=== PATIENT | female | born 1990 | race Caucasian/White ===

== ENCOUNTER 2016-10-24 17:12 | Emergency (ER) | payer OTHER ==
[2016-10-24 17:20] VITALS: BP 127/71; PULSE 88; RESP 16; TEMP 98.1; O2SAT 99
--- NOTE | 2016-10-24 18:09 | ED PDOC ---
HPI: General Adult Time Seen by Provider: 10/24/16 17:35 Chief Complaint (Nursing): ENT Problem Chief Complaint (Provider): ear lobe pain History Per: Patient History/Exam Limitations: no limitations Additional Complaint(s): 26yo F in Ed for eval of left ear lobe earring -states it has been lodged in ear lobe x 2 weeks with pain in area no swelling to ear lobe that can be seen, no drainage no fever no chills no redness. Past Medical History Reviewed: Historical Data, Nursing Documentation, Vital Signs Vital Signs: Last Vital Signs Temp 98.1 F 10/24/16 17:16 Pulse 88 10/24/16 17:16 Resp 16 10/24/16 17:16 BP 127/71 10/24/16 17:16 Pulse Ox 99 10/24/16 17:16 - Medical History PMH: No Chronic Diseases - Family History Family History: States: No Known Family Hx - Home Medications Home Medications: Ambulatory Orders Medication Instructions Recorded Cephalexin [cephalexin] 500 mg PO BID #20 cap 10/24/16 - Allergies Allergies/Adverse Reactions: Allergies Allergy/AdvReac Type Severity Reaction Status Date / Time No Known Allergies Allergy Verified 10/24/16 17:16 Review of Systems ROS Statement: Except As Marked, All Systems Reviewed And Found Negative Musculoskeletal: Positive for: Other (ear: ear lobe left with earring stub lodged in ear lobe with swelling no drainage no ertyehma tenderness noted) Physical Exam - Reviewed Nursing Documentation Reviewed: Yes Vital Signs Reviewed: Yes - Physical Exam Appears: Positive for: Well, Non-toxic, No Acute Distress Head Exam: Positive for: ATRAUMATIC, NORMAL INSPECTION, NORMOCEPHALIC Skin: Positive for: Normal Color, Warm, DRY ENT: Positive for: Other Neurologic/Psych: Positive for: Alert, Oriented - ECG O2 Sat by Pulse Oximetry: 99 Medical Decision Making Medical Decision Making: procedure: earring removed. 1/2 cc of lidocaine used, with forceps stub removed. and earring removed. stoma with inflammation no drainage. advised to apply warm compress to area will be d./c with keflex Disposition - Clinical Impression Clinical Impression: Acute foreign body of earlobe - Patient ED Disposition Is Patient to be Admitted: No Counseled Patient/Family Regarding: Diagnosis, Need For Followup, Rx Given - Disposition Disposition: Routine/Home Disposition Time: 18:13 Condition: STABLE Prescriptions: Cephalexin [cephalexin] 500 mg PO BID #20 cap Instructions: Pierced Earlobe Infection (ED) Forms: [facility] (Greek)
== END 2016-10-24 18:23 | disposition home or self-care (01) ==
LOC: H.ER 17:12
DX: L08.9 Local infection of the skin and subcutaneous tissue, unspecified (principal)